=== PATIENT | female | born 1975 | race Two or more races ===

== ENCOUNTER 2018-03-26 04:30 | Emergency (ER) | payer OTHER ==
[2018-03-26] MEDS ORDERED: ONDANSETRON 4 MG TAB.RAPDIS PO ONE (04:47)
--- NOTE | 2018-03-26 05:51 | ER Document Report ---
ED General - General Stated Complaint: POSSIBLE CO EXPOSURE Time Seen by Provider: 03/26/18 04:52 Notes: Patient is a 42-year-old female who was at the hotel when there was a carbon monoxide exposure. Patient presents with complaints of she felt headache, weakness, she says she does think she passed out. She had some nausea. Patient says that she is feeling improved since arriving to the ED and being placed on oxygen. She still has some headache and some weakness but no longer feels as if she will vomit. Patient denies having any chronic medical problems. - Related Data Allergies/Adverse Reactions: No Known Drug Allergies Allergy (Verified 03/26/18 06:11) Past Medical History - Social History Smoking Status: Never Smoker Frequency of alcohol use: None Drug Abuse: None Family History: Reviewed & Not Pertinent Review of Systems - Review of Systems Notes: My Normal Review Basic REVIEW OF SYSTEMS: CONSTITUTIONAL : Denies fever, chills, or sweats. Denies recent illness. EENT: Denies eye, ear, throat, or mouth pain or symptoms. Denies nasal or sinus congestion. CARDIOVASCULAR: Denies chest pain. RESPIRATORY: Denies cough, cold, or chest congestion. Denies shortness of breath, difficulty breathing, or wheezing. GASTROINTESTINAL: Denies abdominal pain. Denies nausea, vomiting, or diarrhea. MUSCULOSKELETAL: Denies neck or back pain or joint pain or swelling. SKIN: Denies rash or skin lesions. NEUROLOGICAL: Syncopal episode. Has a headache. Denies weakness or paralysis or loss of use of either side. Denies problems with gait or speech. Denies sensory or motor loss. ALL OTHER SYSTEMS REVIEWED AND NEGATIVE. Physical Exam - Notes Notes: General Appearance: Well nourished, alert, cooperative, no acute distress, no obvious discomfort. Vitals: reviewed, See vital signs table. Head: no swelling or tenderness to the head Eyes: PERRL, EOMI, Conjuctiva clear Mouth: No decreasd moisture Lungs: No wheezing, No rales, No rhonci, No accessory muscle use, good air exchange bilaterally. Heart: Normal rate, Regular rythm, No murmur, no rub Abdomen: Normal BS, soft, No rigidity, No abdominal tenderness, No guarding, no rebound, no abdominal masses, no organomegaly Extremities: strength 5/5 in all extremities, good pulses in all extremities, no swelling or tenderness in the extremities, no edema. Skin: warm, dry, appropriate color, no rash Neuro: Renal nerves II through XII are intact. Patient moves all extremities without difficulty. No focal neurologic deficits on exam. Course - Re-evaluation Re-evalutation: 03/26/18 06:26 Patient's repeat levels much improved. Repeat levels on the finger pulse oximeter. She still has some headache however her weakness and dizziness is much improved. I did have her stand and walk. She has absolutely no ataxia. She has normal finger to nose finger testing. There is no disc coordination of movements. We will give the patient some Tylenol for her headache and keep her on a non-rebreather until her symptoms are completely resolved. I did discuss the case with [facility]. He said to continue to monitor. If she has any difficult ataxia or discoordination then she may need to be sent for hyperbaric oxygen however if she does not have the symptoms then she can likely be discharged once her symptoms have resolved. Patient again does not currently have any symptoms of ataxia or discoordination of movements. 03/26/18 07:39 On reevaluation patient's carbon monoxide level is now 4 on the Carbon monoxide pulse oximeter. She looks and feels much improved. Symptoms have resolved. She has no ataxia no disc coronation movements. I feel she is safe to be discharged home. I strongly encouraged her return to ER if she has recurrence of symptoms or feels unwell. Patient agrees with plan and will be discharged home. Dictation of this chart was performed using voice recognition software; therefore, there may be some unintended grammatical errors. - Laboratory Result Diagrams: 03/26/18 04:34 Laboratory results interpreted by me: 03/26/18 04:34 Carboxyhemoglobin 22.1 H Discharge - Discharge Clinical Impression: Carbon monoxide poisoning Qualifiers: Encounter type: initial encounter Injury intent: accidental or unintentional Qualified Code(s): T58.91XA - Toxic effect of carbon monoxide from unspecified source, accidental (unintentional), initial encounter Condition: Good Disposition: HOME, SELF-CARE Additional Instructions: Please do not go back to the hotel until it is cleared and deemed safe by the fire department. Please return to the ER immediately if you have any signs or symptoms such as headache, passing out, recurrent vomiting, difficulty breathing , or feel unwell.
[2018-03-26 05:55] LABS: ANION GAP 13 (5-19); BLOOD UREA NITROGEN 8 mg/dL (7-20); CALCIUM 9.2 mg/dL (8.4-10.2); CARBON DIOXIDE 25 mmol/L (22-30); CHLORIDE 107 mmol/L (98-107); GLUCOSE 87 mg/dL (75-110); SODIUM 144.5 mmol/L (137-145)
[2018-03-26] MEDS ORDERED: ACETAMINOPHEN 325 MG TABLET PO ONE (06:26)
[2018-03-26 08:14] VITALS: BP 121/77
== END 2018-03-26 08:19 | disposition home or self-care (01) ==
LOC: EDSEX → EDBD → ER 04:30
DX: T58.91XA Toxic effect of carbon monoxide from unspecified source, accidental (unintentional), initial encounter (principal); R51 Headache; R53.1 Weakness; R11.0 Nausea; Z99.81 Dependence on supplemental oxygen
CPT/HCPCS: 36415; 80048; 82375; 84703; 99284